=== PATIENT | male | born 1990 | race African-American/Black ===

== ENCOUNTER 2022-03-25 10:55 | Emergency (ER) | payer OTHER, SELFPAY ==
[2022-03-25 11:29] VITALS: BP 131/75; PULSE 67; RESP 18; TEMP 36.4; O2SAT 99
--- NOTE | 2022-03-25 12:03 | ED_ITS ---
HPI - Eye Problem General Chief complaint: Eye Problems Stated complaint: left eye symptoms Time Seen by Provider: 03/25/22 11:38 History of Present Illness HPI Narrative: 31-year-old male no medical problems presents to the emergency room for evaluation of redness and discharge from his left eye since yesterday. Patient states that he was cleaning a coconut, and did not wash his hands following. Rub his eyes but then later they noticed redness to his left eye and purulent drainage. Denies visual changes or vision loss. Related Data Allergies Allergy/AdvReac Type Severity Reaction Status Date / Time No Known Allergies Allergy Verified 03/25/22 11:30 Review of Systems Review of Systems: CONSTITUTIONAL: Denies fever, chills, or sweats. EYES: Denies visual changes ENT: Denies rhinorrhea, congestion, sore throat, or otalgia. CARDIOVASCULAR: Denies chest pain, palpitations, or edema. RESPIRATORY: Denies cough or dyspnea. GASTROINTESTINAL: Denies abdominal pain, nausea, vomiting, or diarrhea. GENITOURINARY: Denies dysuria or hematuria. SKIN: Denies rash or itching. MUSCULOSKELETAL: Denies back pain, joint pain, or myalgia. NEUROLOGIC: Denies headache, numbness, dizziness, or weakness. PSYCHIATRIC: Denies anxiety or depression. Exam Narrative: GENERAL: Well-appearing, well-nourished, no physical limitations, and in no acute distress. HEAD: Normocephalic, atraumatic. EYES: Left conjunctivae erythematous, PERRLA and EOMI. scant amount of purulence to medial canthus CHEST: Clear to auscultation. No respiratory distress. No wheezes rales or rhonchi. HEART: Regular rate and rhythm. No murmur heard. Normal peripheral pulses. EXTREMITIES: Normal range of motion. No edema. No clubbing or cyanosis SKIN: Warm, dry, no rash. No noted wounds NEURO: No focal deficits. Alert and oriented x3. MAEW. CN's II-XI intact bilat erally, normal gait PSYCH: Cooperative. Normal mood and affect. Course Vital Signs Vital signs: Vital Signs Temperature 36.4 C L 03/25/22 11:29 Pulse Rate 67 03/25/22 11:29 Respiratory Rate 18 03/25/22 11:29 Blood Pressure 131/75 03/25/22 11:29 Pulse Oximetry 99 03/25/22 11:29 Oxygen Delivery Room Air 03/25/22 11:29 Temperature 36.4 C L 03/25/22 11:29 Pulse Rate 67 03/25/22 11:29 Respiratory Rate 18 03/25/22 11:29 Blood Pressure 131/75 03/25/22 11:29 Pulse Oximetry 99 03/25/22 11:29 Oxygen Delivery Room Air 03/25/22 11:29 Discharge Plan Discharge Clinical Impression: Conjunctivitis Patient Disposition: Home, Self-Care Condition: Stable Instructions: Antibiotic Form Prescriptions: New polymyxin B sulf-trimethoprim [Polytrim] 10,000 unit- 1 mg/mL drops 1 drp LEFT EYE Q3H 7 Days Qty: 10 0RF Rx Instructions: while awake; do not exceed 6 doses in 24 hours Follow-up/Referrals: PHYSICIAN NOT ON STAFF,NONSTAFF [Primary Care Provider] - Time of Disposition: 12:03
== END 2022-03-25 12:30 | disposition home or self-care (01) ==
LOC: ANHED 12:24
PROVIDERS: Emergency Provider Nurse Practitioner Family
DX: H10.9 Unspecified conjunctivitis (principal)
CPT/HCPCS: 99283

== ENCOUNTER 2022-10-16 08:51 | Emergency (ER) | payer OTHER, SELFPAY ==
[2022-10-16 09:01] VITALS: BP 116/72; PULSE 83; RESP 16; O2SAT 100
--- NOTE | 2022-10-16 09:31 | ED.SKABFB ---
HPI - Skin/Abscess/Foreign Bdy General Chief complaint: Skin/Abscess/Foreign Body Stated complaint: rash Time Seen by Provider: 10/16/22 09:22 Source: patient and RN notes reviewed Mode of arrival: ambulatory Limitations: no limitations History of Present Illness HPI narrative: This is a 32 year old male who presents for evaluation of bilateral forearm rash. Patient states that he has been juicing and developed rash to his forearms 3 to 4 days ago. He states he had a rash but it has improved. HE was using cortisone cream. He denies having rash anywhere else. He does not think it is his soap or detergent. He does not think it is bites. He states he wants labs but he denies fever, chills, nausea, vomiting, diarrhea. He is worried about food poisoning. He denies taking any medications. Related Data Allergies Allergy/AdvReac Type Severity Reaction Status Date / Time No Known Allergies Allergy Verified 10/16/22 09:04 Review of Systems Constitutional: Constitutional: Denies weakness Cardiovascular: Cardiovascular: Denies syncope, Denies rapid heart rate, Denies irregular heart rhythm, Denies leg edema and Denies dyspnea Respiratory: Respiratory: Denies chest congestion, Denies hemoptysis, Denies excessive phlegm production and Denies dyspnea Gastrointestinal: Gastrointestinal: Denies abdominal pain, Denies hematochezia, Denies diarrhea and Denies vomiting Genitourinary: Genitourinary: Denies hematuria, Denies dysuria, Denies penile discharge and Denies testicular pain Musculoskeletal: Musculoskeletal: Denies joint swelling, Denies loss of height and Denies muscle weakness Integumentary/Breasts: Skin/Breast: Reports pruritus and Reports rash Neurologic: Denies syncope, Denies focal weakness and Denies weakness PMFSH Past Medical History Medical History (Updated 10/16/22 @ 09:35 by Jocelyn Joel MD) Patient denies medical problems Exam Const: General: no acute distress and alert Nutritional Appearance: well nourished Orientation/consciousness: patient oriented x3 HENMT: Head: normal to inspection Mouth: Yes Normal oral and palatal mucosa present Eyes: EOM: EOMs intact bilaterally Neck: Neck: normal visual inspection Chest: Chest palpation & inspection: normal inspection of the chest Resp: Effort & Inspection: normal respiratory effort Skin: General skin exam: normal color Other: left forearm with scattered flesh covered papules that may be bites, no drainage, no pustules. no significant rash Neuro: General: patient oriented x3, moves all extremities and CN's II-XI intact bilaterally Extrem: General: normal to inspection Psych: Mental Status: mental status grossly normal Affect: normal affect Attitude: cooperative Course Vital Signs Vital signs: Vital Signs Pulse Rate 83 10/16/22 09:01 Respiratory Rate 16 10/16/22 09:01 Blood Pressure 116/72 10/16/22 09:01 Pulse Oximetry 100 10/16/22 09:01 Oxygen Delivery Room Air 10/16/22 09:01 Pulse Rate 83 10/16/22 09:01 Respiratory Rate 16 10/16/22 09:01 Blood Pressure 116/72 10/16/22 09:01 Pulse Oximetry 100 10/16/22 09:01 Oxygen Delivery Room Air 10/16/22 09:01 MDM - Skin/Abscess/Foreign Bdy MDM Narrative Medical decision making narrative: I Discussed with patient that he is not having any systemic symptoms to suggest need for labs. He understands and he is agreeable to no pursue labs. Differential Diagnosis Differential diagnosis: Likely dermatophytosis, allergic reaction to drug, eczema, insect bites and contact dermatitis Discharge Plan Discharge Clinical Impression: Rash and nonspecific skin eruption Patient Disposition: Home, Self-Care Condition: Stable Instructions: Antibiotic Form, Acute Rash (ED) Additional Instructions: i have given you a provider you can try to establish care with. Take claritin or zyrtect for your itching. You can use hydrocortisone cream as well
== END 2022-10-16 10:08 | disposition home or self-care (01) ==
PROVIDERS: Emergency Provider General Practice
DX: R21 Rash and other nonspecific skin eruption (principal)
CPT/HCPCS: 99281